=== PATIENT | female | born 1995 | race Caucasian/White ===

== ENCOUNTER 2017-06-10 03:51 | Emergency (ER) | payer OTHER ==
[2017-06-10] MEDS ORDERED: Acetaminophen 500 MG TAB ONE (04:44)
[2017-06-10] MEDS ORDERED: Ondansetron ODT 8 MG TAB ONE (04:44)
--- NOTE | 2017-06-10 07:36 | CT ---
PRELIMINARY REPORT/[facility]/EMERGENCY AFTER HOURS PROCEDURE: EXAM: CT Head Without Intravenous Contrast CLINICAL HISTORY: Pain post injury. TECHNIQUE: Axial computed tomography images of the head/brain without intravenous contrast. COMPARISON: No relevant prior studies available. FINDINGS: Brain: No acute findings. No hemorrhage. No significant white matter disease. No edema. Ventricles: No acute findings. No ventriculomegaly. Bones/joints: No acute findings. No acute fracture. Soft tissues: High posterior right scalp hematoma without underlying skull fracture or depression. Sinuses: Unremarkable as visualized. No acute sinusitis. Mastoid air cells: Unremarkable as visualized. No mastoid effusion. IMPRESSION: No acute intracranial pathology. High posterior right scalp hematoma without underlying skull fracture or depression. Thank you for allowing us to participate in the care of your patient. Dictated and Authenticated by: Wing Paula MD 06/10/2017 5:32 AM Central Time ([place] \T\ [place]) FINAL REPORT HEAD CT WITHOUT CONTRAST: DATE: 06/10/17. HISTORY: Fall, altered mental status, disoriented, head pain. FINDINGS: I agree with the preliminary [facility] report. There is a focal area of scalp swelling in the high post erior right parietal region with no underlying fracture or intracranial hemorrhage. IMPRESSION: No intracranial hemorrhage or displaced calvarial fracture. POS: [facility]
== END 2017-06-10 05:59 | disposition home or self-care (01) ==
LOC: ERS 03:51
DX: S06.0X9A Concussion with loss of consciousness of unspecified duration, initial encounter (principal); F98.8 Other specified behavioral and emotional disorders with onset usually occurring in childhood and adolescence; W06.XXXA Fall from bed, initial encounter; Y92.009 Unspecified place in unspecified non-institutional (private) residence as the place of occurrence of the external cause
CPT/HCPCS: 70450